=== PATIENT | male | born 1975 | race Caucasian/White ===

== ENCOUNTER 2022-05-03 03:00 | Emergency (ER) | payer BC ==
[~2022-05-03] VITALS: Ht 188 cm; Wt 81.0 kg
[~2022-05-03 03:00] MED LIST: CARAFATE1 GM PO; PERCOCET 7.5-31 EACH PO; ZOFRAN ODT4 MG PO
[2022-05-03] MEDS ORDERED: PERCOCET 5-3251 EACH PO (04:42)
== END 2022-05-03 05:33 | disposition home or self-care (01) ==
LOC: ED 03:00
DX: S39.012A Strain of muscle, fascia and tendon of lower back, initial encounter (principal); Z87.891 Personal history of nicotine dependence; X50.1XXA Overexertion from prolonged static or awkward postures, initial encounter
CPT/HCPCS: 72100; 96374; 99283-25; J1170; J1885; J3010; J3360